=== PATIENT | male | born 1980 ===

== ENCOUNTER 2019-08-23 06:00 | Outpatient (RCR) | payer MEDICARE, MEDICAID, SELFPAY | END 2019-09-01 23:59 | disposition home or self-care (01) | LOC: SST 06:00 | PROVIDERS: Referring Provider Family Medicine; Visit Provider Family Medicine | DX: F84.0 Autistic disorder (principal); F80.9 Developmental disorder of speech and language, unspecified; R41.841 Cognitive communication deficit | CPT/HCPCS: 92607; 92608 ==